=== PATIENT | female | born 1940 | race Caucasian/White ===

== ENCOUNTER 2021-02-11 16:18 | Observation (INO) | payer OTHER ==
[~2021-02-11] VITALS: Ht 160 cm; Wt 79.4 kg
[2021-02-11] MEDS ORDERED: AMIODARONE 450mg/250ml AE 250 ML IV SCH ×3 (16:45→23:35)
[2021-02-11] MEDS ORDERED: AMIODARONE HCL 150 MG in D5W 5% 100 ML IV ONE (16:45)
[2021-02-11] MEDS ORDERED: AMIODARONE HCL (50 MG/ ML) 3 ML VIAL IV ONE (17:03)
[2021-02-11 17:34] LABS: INR 1.03 (0.9-1.15); Partial Thromboplastin Time 24.8 sec (23.6-33.0)
[2021-02-11 17:43] LABS: Anion Gap 8 (5-15); Blood Urea Nitrogen 28 mg/dL (7-18); Calcium 9.5 mg/dL (8.5-10.1); Carbon Dioxide 21 mmol/L (21-32); Chloride 110 mmol/L (98-107); Glucose 119 mg/dL (74-106); Sodium 139 mmol/L (136-145)
[2021-02-11 17:46] LABS: Alanine Aminotransferase 32 U/L (13-56); Bilirubin, Total 0.2 mg/dL (0.2-1.0); GFR African American 46 mL/min; GFR Non-African American 38 mL/min; Total Protein 7.4 g/dL (6.4-8.2)
[2021-02-11 17:52] LABS: Basophils # (auto) 0.1 10 ^3/uL (0-0.2); Basophils % (auto) 0.8 % (0.0-2.0); Eosinophils # (auto) 0.1 10 ^3/uL (0-0.8); Eosinophils % (auto) 0.7 % (0.0-7.0); Hematocrit 44.6 % (36.0-46.0); Hemoglobin 14.7 g/dL (12.2-16.2); Lymphocytes # (auto) 1.3 10 ^3/uL (0.4-5.4); Lymphocytes % (auto) 17.8 % (10.0-50.0); Mean Corpuscular Hemoglobin 30.1 pg (28.0-32.0); Mean Corpuscular Volume 91.1 fL (80.0-100.0); Monocytes # (auto) 0.6 10 ^3/uL (0-1.3); Neutrophils # (auto) 5.2 10 ^3/uL (1.6-8.6); Neutrophils % (auto) 72.7 % (37.0-80.0); Nucleated Red Blood Cells % 0.1 %; Red Cell Distribution Width 14.1 % (11.8-14.3); White Blood Cell 7.2 10^3/uL (4.4-10.8)
[2021-02-11 17:53] LABS: Alkaline Phosphatase 69 U/L (45-117); Aspartate Aminotransferase 30 U/L (15-37)
[2021-02-11] MEDS ORDERED: HEPARIN DRIP/D5W 100UNITS/ML 250 ML IV SCH ×2 (18:45)
[2021-02-11] MEDS ORDERED: SIMV-13 PO (18:50)
[2021-02-11] MEDS ORDERED: ALPRAZolam 0.5 MG TAB PO PRN (19:00)
[2021-02-11] MEDS ORDERED: NITROGLYCERIN 0.4 MG SL TAB SL PRN (19:00)
[2021-02-11] MEDS ORDERED: ONDANSETRON HCL 4 MG/2 ML VIAL IV PRN (19:00)
[2021-02-11] MEDS ORDERED: MORPHINE SULFATE INJECTION 2 MG/ML SYRG IV PRN (19:00)
[2021-02-11] MEDS ORDERED: ACETAMINOPHEN 325 MG TAB PO PRN (19:00)
[2021-02-11 19:35] LABS: Basophils # (auto) 0 10 ^3/uL (0-0.2); Basophils % (auto) 0.4 % (0.0-2.0); Eosinophils # (auto) 0 10 ^3/uL (0-0.8); Eosinophils % (auto) 0.7 % (0.0-7.0); Hematocrit 43.5 % (36.0-46.0); Hemoglobin 14.7 g/dL (12.2-16.2); Lymphocytes # (auto) 1.5 10 ^3/uL (0.4-5.4); Lymphocytes % (auto) 22.9 % (10.0-50.0); Mean Corpuscular Hemoglobin 30.9 pg (28.0-32.0); Mean Corpuscular Hgb Conc. 33.8 g/dL (32.0-36.0); Mean Corpuscular Volume 91.4 fL (80.0-100.0); Monocytes # (auto) 0.5 10 ^3/uL (0-1.3); Monocytes % (auto) 7.2 % (0.0-12.0); Neutrophils # (auto) 4.6 10 ^3/uL (1.6-8.6); Neutrophils % (auto) 68.8 % (37.0-80.0); Nucleated Red Blood Cells % 0.1 %; Red Blood Cells 4.77 10^6/uL (4.0-5.20); Red Cell Distribution Width 14.4 % (11.8-14.3); White Blood Cell 6.6 10^3/uL (4.4-10.8)
[2021-02-11 20:17] LABS: Urine Bacteria NONE SEEN /hpf (None Seen); Urine Blood Negative /uL (Negative); Urine Hyaline Cast FEW /lpf (0 - 2); Urine Specific Gravity 1.019 (1.001-1.035); Urine WBC <1 /hpf (0 - 5)
[2021-02-12 03:55] LABS: Basophils # (auto) 0.1 10 ^3/uL (0-0.2); Eosinophils # (auto) 0.2 10 ^3/uL (0-0.8); Eosinophils % (auto) 2.8 % (0.0-7.0); Hemoglobin 14.2 g/dL (12.2-16.2); Lymphocytes # (auto) 2.2 10 ^3/uL (0.4-5.4); Lymphocytes % (auto) 37.2 % (10.0-50.0); Mean Corpuscular Hemoglobin 30.4 pg (28.0-32.0); Mean Corpuscular Volume 92.2 fL (80.0-100.0); Monocytes # (auto) 0.5 10 ^3/uL (0-1.3); Monocytes % (auto) 8.8 % (0.0-12.0); Neutrophils % (auto) 50.2 % (37.0-80.0); Nucleated Red Blood Cells % 0.1 %; Red Blood Cells 4.67 10^6/uL (4.0-5.20); Red Cell Distribution Width 14.2 % (11.8-14.3)
[2021-02-12 04:11] LABS: INR 1.02 (0.9-1.15); Partial Thromboplastin Time 23.7 sec (23.6-33.0)
[2021-02-12 04:13] LABS: Albumin 3.5 g/dL (3.4-5.0); BUN/Creatinine Ratio 21.6; Calcium 8.8 mg/dL (8.5-10.1); Potassium 4.2 mmol/L (3.5-5.1)
[2021-02-12 04:16] LABS: Bilirubin, Total 0.5 mg/dL (0.2-1.0); Total Protein 7.3 g/dL (6.4-8.2)
[2021-02-12] MEDS ORDERED: FLUO60TA7 PO (04:16)
[2021-02-12] MEDS ORDERED: HEPARIN SODIUM (PORCINE) 5000 UNITS/ML 1ML VIAL IV ONE (04:45)
[2021-02-12 05:00] VITALS: BP 150/53
[2021-02-12 05:21] VITALS: BP 150/53
[2021-02-12] MEDS ORDERED: LOS25T PO (08:13)
[2021-02-12 08:43] LABS: INR 1.05 (0.9-1.15); Partial Thromboplastin Time 25.3 sec (23.6-33.0)
[2021-02-12 08:56] VITALS: BP 137/76
[2021-02-12] MEDS ORDERED: FOLI1TAB6 PO (09:37)
[2021-02-12] MEDS ORDERED: APIX5TAB OR (09:37)
[2021-02-12] MEDS ORDERED: THIA100T10 PO (09:37)
[2021-02-12] MEDS ORDERED: AMIO200T4 PO (09:45)
[2021-02-12] MEDS ORDERED: FOLIC ACID 1 MG TAB PO SCH (10:00)
[2021-02-12] MEDS ORDERED: THIAMINE HCL 100 MG TAB PO SCH (10:00)
[2021-02-12] MEDS ORDERED: ENOXAPARIN SOD 100 MG/1 ML SYRINGE SC ONE (10:15)
[2021-02-12 10:22] VITALS: BP 137/76
== END 2021-02-12 12:49 | disposition home health service (06) ==
LOC: ER 16:18 → TELE 18:53 → TELE-WESTW 02-12 03:39
PROVIDERS: ADMIT Hospitalist; ATTEND Hospitalist
DX: I48.20 Chronic atrial fibrillation, unspecified (principal); Z20.822 Contact with and (suspected) exposure to COVID-19; I10 Essential (primary) hypertension; E78.00 Pure hypercholesterolemia, unspecified; F10.20 Alcohol dependence, uncomplicated; Z85.3 Personal history of malignant neoplasm of breast; Z86.73 Personal history of transient ischemic attack (TIA), and cerebral infarction without residual deficits; Z90.710 Acquired absence of both cervix and uterus; Z91.19 Patient's noncompliance with other medical treatment and regimen; Z79.899 Other long term (current) drug therapy
CPT/HCPCS: 36415; 71045; 80053; 81001; 83735; 84484; 85025; 85610; 85730; 86850; 86900; 86901; 87426; 93005; 96365; 96366; 96368; 96376; 99291; G0378; J0282; J1644; J7060

== ENCOUNTER 2022-08-10 09:55 | Emergency (ER) | payer OTHER ==
[~2022-08-10] VITALS: Ht 162.6 cm; Wt 68.0 kg
[~2022-08-10 09:55] MED LIST: AMIO200T4 PO; APIX5TAB OR; FLUO60TA7 PO; FOLI1TAB6 PO; LOS25T PO; SIMV-13 PO; THIA100T10 PO
[2022-08-10] MEDS ORDERED: ASPirin 325 MG TAB PO ONE (10:15)
[2022-08-10 10:32] LABS: Basophils # (auto) 0 10 ^3/uL (0-0.2); Basophils % (auto) 0.9 % (0.0-2.0); Eosinophils # (auto) 0.1 10 ^3/uL (0-0.8); Eosinophils % (auto) 2.6 % (0.0-7.0); Hematocrit 41.4 % (36.0-46.0); Hemoglobin 13.9 g/dL (12.2-16.2); Lymphocytes # (auto) 1.4 10 ^3/uL (0.4-5.4); Lymphocytes % (auto) 28.4 % (10.0-50.0); Mean Corpuscular Hemoglobin 30.9 pg (28.0-32.0); Mean Corpuscular Hgb Conc. 33.7 g/dL (32.0-36.0); Mean Corpuscular Volume 91.6 fL (80.0-100.0); Monocytes # (auto) 0.3 10 ^3/uL (0-1.3); Monocytes % (auto) 7.1 % (0.0-12.0); Nucleated Red Blood Cells % 0.2 %; Red Blood Cells 4.52 10^6/uL (4.0-5.20); Red Cell Distribution Width 14.2 % (11.8-14.3); White Blood Cell 4.9 10^3/uL (4.4-10.8)
[2022-08-10 11:02] VITALS: BP 160/81
[2022-08-10 11:06] LABS: Albumin 3.9 g/dL (3.4-5.0); Calcium 9.5 mg/dL (8.5-10.1); Potassium 3.9 mmol/L (3.5-5.1)
[2022-08-10 11:08] LABS: BUN/Creatinine Ratio 22.1 (10.0-20.0)
[2022-08-10 11:25] LABS: Bilirubin, Total 0.6 mg/dL (0.2-1.0); Total Protein 7.2 g/dL (6.4-8.2)
== END 2022-08-10 15:04 | disposition home or self-care (01) ==
LOC: ER 09:55 → EDBD 09:55 → ER 15:04
DX: R07.89 Other chest pain (principal)
CPT/HCPCS: 36415; 71045; 80053; 84484; 85025; 93005